=== PATIENT | female | born 2000 | race African-American/Black ===

== ENCOUNTER 2020-01-11 07:08 | Emergency (ER) | payer OTHER ==
[~2020-01-11] VITALS: Ht 157.5 cm; Wt 98.4 kg
[2020-01-11 07:13] VITALS: BP 141/69
== END 2020-01-11 07:43 | disposition home or self-care (01) ==
LOC: ER 07:08
DX: M25.561 Pain in right knee (principal); M25.562 Pain in left knee; E66.9 Obesity, unspecified; Z68.39 Body mass index [BMI] 39.0-39.9, adult

== ENCOUNTER 2021-02-16 09:29 | Emergency (ER) | payer OTHER ==
[~2021-02-16] VITALS: Ht 157.5 cm; Wt 101.2 kg
[2021-02-16] MEDS ORDERED: PROAIR HFA8.5 GM INH (09:46)
[2021-02-16] MEDS ORDERED: FLONASE 0.05%50 MCG NARES (11:12)
[2021-02-16] MEDS ORDERED: PREDNISONE 20 M20 MG PO (11:12)
[2021-02-16 12:38] VITALS: BP 120/79
== END 2021-02-16 12:39 | disposition home or self-care (01) ==
LOC: ER 09:29
DX: J45.901 Unspecified asthma with (acute) exacerbation (principal); J30.2 Other seasonal allergic rhinitis; Z79.899 Other long term (current) drug therapy; Z20.822 Contact with and (suspected) exposure to COVID-19